=== PATIENT | female | born 1965 ===

== ENCOUNTER 2021-07-10 06:37 | Inpatient (IN) ==
[2021-07-10] MEDS ORDERED: Al Hydrox/Mg Hydrox/Simet LIQ 30 ML UDC PO PRN (08:54)
[2021-07-10] MEDS: Insulin GLARGINE 100 un/ml 10 ml VIAL SUBCUT SCH ×2 (15:17→22:06)
[2021-07-10] MEDS: Cholecalciferol (VIT D3) 1,000 unit TAB PO SCH ×2 (15:27→15:33)
[2021-07-11 07:49] LABS: HDL Cholesterol 38.2 mg/dL
[2021-07-11] MEDS: Cholecalciferol (VIT D3) 1,000 unit TAB PO SCH (09:11)
[2021-07-11] MEDS: Insulin GLARGINE 100 un/ml 10 ml VIAL SUBCUT SCH (21:16)
[2021-07-12] MEDS: Cholecalciferol (VIT D3) 1,000 unit TAB PO SCH (09:47)
[2021-07-12] MEDS ORDERED: OLANzapine 5 mg TAB*ODT ONE (18:31)
[2021-07-12] MEDS: Insulin GLARGINE 100 un/ml 10 ml VIAL SUBCUT SCH (21:50)
[2021-07-13] MEDS: Cholecalciferol (VIT D3) 1,000 unit TAB PO SCH (08:27)
[2021-07-13] MEDS: OLANzapine 5 mg TAB*ODT PO PRN ×2 (08:27→20:48)
[2021-07-13] MEDS: Insulin GLARGINE 100 un/ml 10 ml VIAL SUBCUT SCH (20:46)
[2021-07-14] MEDS: Cholecalciferol (VIT D3) 1,000 unit TAB PO SCH (08:20)
[2021-07-14] MEDS ORDERED: Dextran 70/Hypromellose Tears Eye Drops 15 ml BTL (for Artificials Tears) BOTH EYES PRN (09:08)
[2021-07-14] MEDS ORDERED: CMC:LoraTADine 10 mg TAB (NF) PO ONE (10:00)
[2021-07-14] MEDS: OLANzapine 5 mg TAB*ODT PO PRN (17:42)
[2021-07-14] MEDS: Insulin GLARGINE 100 un/ml 10 ml VIAL SUBCUT SCH (21:03)
[2021-07-15] MEDS: Cholecalciferol (VIT D3) 1,000 unit TAB PO SCH (07:33)
[2021-07-15] MEDS: Insulin GLARGINE 100 un/ml 10 ml VIAL SUBCUT SCH (21:43)
[2021-07-16] MEDS: Cholecalciferol (VIT D3) 1,000 unit TAB PO SCH (10:03)
[2021-07-16] MEDS: Insulin GLARGINE 100 un/ml 10 ml VIAL SUBCUT SCH (22:01)
[2021-07-17] MEDS: Cholecalciferol (VIT D3) 1,000 unit TAB PO SCH (09:05)
[2021-07-17] MEDS: Insulin GLARGINE 100 un/ml 10 ml VIAL SUBCUT SCH (21:52)
[2021-07-18] MEDS: Cholecalciferol (VIT D3) 1,000 unit TAB PO SCH (08:20)
[2021-07-18] MEDS: Insulin GLARGINE 100 un/ml 10 ml VIAL SUBCUT SCH (21:52)
[2021-07-19] MEDS: Cholecalciferol (VIT D3) 1,000 unit TAB PO SCH (08:36)
[2021-07-19] MEDS: Insulin GLARGINE 100 un/ml 10 ml VIAL SUBCUT SCH (21:41)
[2021-07-20] MEDS: Cholecalciferol (VIT D3) 1,000 unit TAB PO SCH (09:18)
[2021-07-20] MEDS: Insulin GLARGINE 100 un/ml 10 ml VIAL SUBCUT SCH (20:48)
[2021-07-21] MEDS: Cholecalciferol (VIT D3) 1,000 unit TAB PO SCH (08:33)
[2021-07-21] MEDS: Insulin GLARGINE 100 un/ml 10 ml VIAL SUBCUT SCH (22:33)
[2021-07-22] MEDS: Cholecalciferol (VIT D3) 1,000 unit TAB PO SCH (09:13)
[2021-07-22] MEDS: Insulin GLARGINE 100 un/ml 10 ml VIAL SUBCUT SCH (21:13)
[2021-07-23] MEDS: Cholecalciferol (VIT D3) 1,000 unit TAB PO SCH (08:23)
[2021-07-23 10:04] VITALS: BP 136/78
== END 2021-07-23 11:30 | disposition home or self-care (01) | DRG 751 ==
LOC: ED 06:37 → EDHOLD 09:23 → BSU 12:17
PROVIDERS: ADMIT Psychiatry & Neurology Psychiatry; ATTEND Psychiatry & Neurology Psychiatry